=== PATIENT | female | born 1955 | race Caucasian/White ===

== ENCOUNTER 2018-09-06 14:12 | Outpatient (CLI) | payer OTHER ==
--- NOTE | 2018-09-06 16:10 | DEXA Report ---
Reason: ASYMPTOMATIC MENOPAUSAL STATE,LOSS OF HEIGHT Procedure Date: 09/06/2018 Accession Number: [id number] / [id number] Procedure: DEX - Dexa Spine and/or Hip CPT Code: FULL RESULT: EXAM: DUAL EMISSION X-RAY ABSORPTIOMETRY (DXA) SCAN EXAM DATE: 09/06/2018 03:09 PM. CLINICAL HISTORY: ASYMPTOMATIC MENOPAUSAL STATE, LOSS OF HEIGHT. COMPARISON: None. ADDITIONAL PATIENT INFORMATION: 62-year-old female currently on hormone replacement therapy. Menopause age 52. TECHNIQUE: Dual energy x-ray absorptiometry (DXA) was performed on a [employer] System. Regions measured at the AP spine, femoral neck, and if needed, forearm. TECHNIQUE LIMITATIONS/EXCLUSIONS: None. FINDINGS: Lumbar Spine: Bone mineral density 1.028 g/sq cm, T-score -1.3, Z-score -0.1. Femoral Neck: Bone mineral density 0.870 g/sq cm, T-score -1.2, Z-score 0.0. Total Hip: Bone mineral density 0.821 g/sq cm, T-score -1.5, Z-score -0.6. IMPRESSION: Osteopenia. Fracture risk is increased. World Health Organization (WHO) Reporting guidelines (based on lowest BMD) for postmenopausal and perimenopausal women, men age 50 years and older: Normal: T-score at or greater than -1.0 Osteopenia: T-score between -1.1 to -2.4 Osteoporosis: T-score at or less than -2.5 RADIA
== END 2018-09-06 14:13 | disposition home or self-care (01) ==
LOC: DI 14:12
PROVIDERS: ATTEND Family Medicine
DX: M85.89 Other specified disorders of bone density and structure, multiple sites (principal); Z78.0 Asymptomatic menopausal state; R29.890 Loss of height
CPT/HCPCS: 77080

== ENCOUNTER 2018-11-22 09:45 | Outpatient (CLI) | payer OTHER ==
[2018-11-22] MEDS ORDERED: IOVERSOL 320 100 ML VIAL IVP ONE (10:03)
[2018-11-22] MEDS ORDERED: IOVERSOL 320 50 ML VIAL ONE (10:03)
--- NOTE | 2018-11-22 12:16 | CT Report ---
Reason: LYMPHOCYTOSIS Procedure Date: 11/22/2018 Accession Number: [id number] / [id number] Procedure: CT - CHEST W CPT Code: FULL RESULT: EXAM: CT CHEST EXAM DATE: 11/22/2018 11:08 AM. CLINICAL HISTORY: Lymphocytosis. COMPARISONS: None. TECHNIQUE: Routine helical CT imaging was performed through the chest. IV contrast: None. Reconstructions: Coronal and sagittal. In accordance with CT protocol optimization, one or more of the following dose reduction techniques were utilized for this exam: automated exposure control, adjustment of mA and/or KV based on patient size, or use of iterative reconstructive technique. FINDINGS: Lungs/Pleura: There is a number of tiny nodules measuring 3 mm or less throughout both lungs, for example 2.3 mm pleural based in the right upper lobe on image 25 series 3, 2 mm nodule on image 29 series 3 in the right lower lobe, 2 mm nodule on image 27 in the left upper lobe. No spiculated nodules, bronchial thickening, consolidation, or edema. Pulmonary vasculature is normal. No pericardial or pleural effusion. No pneumothorax. Mediastinum: Normal. No adenopathy or masses. The heart and great vessels are normal. Bones: Unremarkable. Visualized Abdomen: Multiple hepatic hypodensities which are too small to characterize. Other: Prominent lymph nodes are seen in both axillary regions, left greater than right with lymph nodes on an individual basis not meeting size criteria, morphology of the nodes appears generally preserved. IMPRESSION: Numerous pulmonary nodules measuring 3 mm or less. Recommend follow-up of the described nodule(s) according to the following guidelines: Fleischner Society Recommendations 2017 MacMahon et al. Radiology 2017 Solid Nodules-Low Risk Patients: <6 mm (single or multiple) - No routine follow-up* Solid Nodules-High Risk Patients: <6 mm (single or multiple) -Optional CT at 12 months* *Nodules < 6mm do not require routine follow-up, but suspicious nodule morphology, upper lobe location, or both may warrant 12 month follow-up RADIA
--- NOTE | 2018-11-22 12:19 | CT Report ---
Reason: LYMPHOCYTOSIS Procedure Date: 11/22/2018 Accession Number: [id number] / [id number] Procedure: CT - Abdomen/Pelvis W CPT Code: FULL RESULT: EXAM: CT ABDOMEN AND PELVIS EXAM DATE: 11/22/2018 11:08 AM. CLINICAL HISTORY: Lymphocytosis. COMPARISONS: ABDOMEN/PELVIS W/ 04/23/2016 3:17 AM. TECHNIQUE: Routine helical CT imaging was performed through the abdomen and pelvis. IV contrast: ISOVUE 300 100mL. Enteric contrast: Yes. Reconstructions: Coronal and sagittal. In accordance with CT protocol optimization, one or more of the following dose reduction techniques were utilized for this exam: automated exposure control, adjustment of mA and/or KV based on patient size, or use of iterative reconstructive technique. FINDINGS: Lung Bases: See separate report. Liver: Hepatic hypodensities are too small to characterize. Gallbladder/Bile Ducts: Unremarkable. Spleen: Normal. Pancreas: Normal. Adrenal Glands: Normal. Kidneys: Normal. No masses or hydronephrosis. Peritoneal Cavity/Bowel: There are a few prominent retroperitoneal nodes, subcentimeter for example on image 27 series 3. No lymphadenopathy by size criteria. No bowel obstruction. No free fluid or free air. Pelvic Organs: There are prominent inguinal nodes which generally do not meet size criteria and demonstrate preserved fatty hilum, morphologically borderline appearance of one left inguinal node on image 75 series 3 axially and image 13 series 5 coronally, short axis 1.1 cm. The bladder and visualized pelvic organs are within normal limits. Vasculature: Mild atherosclerosis without aneurysm. Bones: No aggressive osseous lesions. Other: None. IMPRESSION: A few prominent lymph nodes, none of which meet size criteria. RADIA
[2018-11-22] MEDS: IOVERSOL 320 100 ML VIAL IVP ONE (12:58)
[2018-11-22] MEDS: IOVERSOL 320 50 ML VIAL PO ONE (12:59)
--- NOTE | 2018-11-23 10:09 | CT Report ---
Reason: LYMPHOCYTOSIS Procedure Date: 11/22/2018 Accession Number: [id number] / [id number] Procedure: CT - SOFT TISSUE NECK W CPT Code: FULL RESULT: EXAM: CT SOFT TISSUE NECK WITH CONTRAST. EXAM DATE: 11/22/2018 11:08 AM. HISTORY: Lymphocytosis. COMPARISONS: CT chest, abdomen, and pelvis from today. TECHNIQUE: Routine soft tissue neck CT protocol. Reconstructions: Coronal and sagittal. IV contrast: ISOVUE 300 100mL. In accordance with CT protocol optimization, one or more of the following dose reduction techniques were utilized for this exam: automated exposure control, adjustment of mA and/or KV based on patient size, or use of iterative reconstructive technique. FINDINGS: There are shotty lymph nodes seen throughout the neck involving the jugular chain bilaterally and the posterior triangle. In addition there are some lymph nodes in the neck which are mildly enlarged. A order entry representative level 2 lymph node on the left measures 11 mm short axis on image 57 series 2 and a order entry representative lymph node in the supraclavicular region of the left measures 10 mm short axis image 103 series 2. A order entry representative lesion on the right at level 2 image 58 series 2 and at the level 2/3 junction on the right image 68 series 2 measure 10 mm short axis. No bulky lymphadenopathy is seen in the visualized upper mediastinum. For findings in the chest, the reader is referred to the patient's chest CT performed today and dictated under separate cover. The thyroid gland is not enlarged. A 13 mm hypoenhancing well-circumscribed nodule is seen posteriorly in the right thyroid lobe. There is slight medial position of the left true vocal cord. Aryepiglottic folds are symmetric. No mass is present in the nasopharynx. The parapharyngeal fat is symmetric. No submandibular mass or parotid mass is present on the right or on the left. No mass is present in either orbit. No enhancing mass is present in the visualized brain. Degenerative changes are seen in the cervical spine. Moderate to severe degenerative disk disease and osteophyte formation are seen from C3 through C7. IMPRESSION: 1. Mildly enlarged lymph nodes and shotty lymph nodes are seen throughout the neck. The overall number of lymph nodes is greater than typically seen. These could be reactive in nature from an inflammatory process such as sarcoidosis. Alternatively, this could reflect a lymphoproliferative disorder or metastatic disease. 2. Possible subtle left true vocal cord paralysis. 3. Moderate to severe degenerative disk disease is present from C3 through C7. RADIA
== END 2018-11-22 09:46 | disposition home or self-care (01) ==
LOC: DI 09:45
PROVIDERS: ATTEND Internal Medicine
DX: D72.820 Lymphocytosis (symptomatic) (principal); R91.8 Other nonspecific abnormal finding of lung field; R59.0 Localized enlarged lymph nodes; M50.31 Other cervical disc degeneration, high cervical region
CPT/HCPCS: 70491; 71260; 74177; Q9967

== ENCOUNTER 2019-01-11 09:10 | Day surgery (SDC) | payer OTHER ==
[2019-01-11] MEDS ORDERED: LACTATED RINGERS 1,000 ML IV ONE (09:45)
[2019-01-11] MEDS ORDERED: MIDAZOLAM 2 MG/2 ML VIAL IVP ONE (10:48)
[2019-01-11] MEDS ORDERED: fentaNYL 250 MCG/5 ML VIAL IVP ONE (10:48)
[2019-01-11 12:08] VITALS: BP 99/50
== END 2019-01-11 09:11 | disposition home or self-care (01) ==
LOC: SDS 09:10
PROVIDERS: ATTEND Surgery
PROC: 0DJD8ZZ Inspection of Lower Intestinal Tract, Via Natural or Artificial Opening Endoscopic (ICD-10-PCS; principal; 2019-01-11 10:45)
DX: Z12.11 Encounter for screening for malignant neoplasm of colon (principal); K64.8 Other hemorrhoids; C91.10 Chronic lymphocytic leukemia of B-cell type not having achieved remission
CPT/HCPCS: 45378; J3010; J7120

== ENCOUNTER 2020-06-06 09:19 | Outpatient (CLI) | payer OTHER ==
--- NOTE | 2020-06-09 16:02 | Mammography Report ---
BILATERAL DIGITAL SCREENING MAMMOGRAM 3D/2D: 06/06/2020 CLINICAL: Routine screening. Comparison is made to exams dated: 04/03/2019 mammogram and 03/29/2018 mammogram - [facility]. The tissue of both breasts is extremely dense, which lowers the sensitivity of mammography. There are benign calcifications in the left breast. No significant masses, calcifications, or other findings are seen in either breast. There has been no significant interval change. IMPRESSION: BENIGN There is no mammographic evidence of malignancy. A 1 year screening mammogram is recommended. This exam was interpreted at Station ID: [id number]. NOTE: For mammograms, a report in lay terms will be sent to the patient. Approximately 15% of breast malignancies will not be visualized mammographically. In the management of a palpable breast mass, a negative mammogram must not discourage biopsy of a clinically suspicious lesion. Electronically Signed By: Hans Alexander acr/penrad:06/08/2020 15:38:33 ACR BI-RADS Category 2: Benign Finding(s) 3342F PARENCHYMAL PATTERN: (VD) - The breast(s) demonstrate(s) extremely dense parenchyma, limiting the sen sitivity of mammography. BI-RADS CATEGORY: (2) - 2 RECOMMENDATION: (ANNUAL) - Recommend routine annual screening mammography. [id number] 1 year screening LATERALITY: (B)
== END 2020-06-06 09:20 | disposition home or self-care (01) ==
LOC: DI.N 09:19
DX: Z12.31 Encounter for screening mammogram for malignant neoplasm of breast (principal)
CPT/HCPCS: 77063; 77067

== ENCOUNTER 2022-07-28 15:11 | Outpatient (CLI) | payer OTHER ==
--- NOTE | 2022-07-28 17:36 | DEXA Report ---
PROCEDURE: Dexa Spine and/or Hip INDICATIONS: OSTEOPENIA TECHNIQUE: Dual energy x-ray absorptiometry (DXA) was performed on a [employer] System. Regions measur ed are the AP Spine, femoral neck, and if needed forearm. COMPARISON: 09/06/2018. FINDINGS: Lumbar Spine: Bone Mineral Density 0.973 g/cm/cm,T score -1.7. There is interval 5.4% decreased total lumbar spi ne bone mineral density. Left Femoral Neck: Bone Mineral Density 0.793 g/cm/cm, T score -1.8. Left Hip: Bone Mineral Density 0.799 g/cm/cm,T score -1.7. There is interval 2.7% decrease in total left hip b one mineral density. (T score greater or equal to -1.0: NORMAL) (T score from -1.1 to -2.4: OSTEOPENIA) (T score less than or equal to -2.5 to: OSTEOPOROSIS) Impression: Osteopenia. Patients with diagnosis of osteoporosis or osteopenia should have regular bone mineral density assess ment. For those eligible for Medicare, routine testing is allowed once every 2 years. Testing frequ ency can be increased for patients who have rapidly progressing disease or for those who are receivin g medical therapy to restore bone mass. Reviewed by: Royer Garcia MD on 07/28/2022 5:35 PM PST Approved by: Royer Garcia MD on 07/28/2022 5:35 PM PST Station ID: [id number]
== END 2022-07-28 15:12 | disposition home or self-care (01) ==
LOC: DI 15:11
PROVIDERS: ATTEND Family Medicine
DX: M85.89 Other specified disorders of bone density and structure, multiple sites (principal)

== ENCOUNTER 2022-11-03 09:46 | Outpatient (CLI) | payer MEDICARE, OTHER ==
[2022-11-04 08:10] LABS: VARICELLA-ZOSTER AB IGG 223 index (Immune >165)
[2022-11-04 14:09] LABS: VARICELLA-ZOSTER AB IGM <0.91 index (0.00-0.90)
== END 2022-11-03 09:47 | disposition home or self-care (01) ==
LOC: LAB 09:46
PROVIDERS: ATTEND Internal Medicine
DX: Z11.59 Encounter for screening for other viral diseases (principal)
CPT/HCPCS: 86787